=== PATIENT | male | born 1965 | race Caucasian/White ===

== ENCOUNTER 2023-02-23 09:01 | Emergency (ER) | payer OTHER ==
[~2023-02-23] VITALS: Ht 182.9 cm; Wt 104.3 kg
[2023-02-23 09:34] VITALS: BP 141/89; TEMP 98.2
[2023-02-23] MEDS ORDERED: LIDOCAINE 1% INJ 50 ML MDV IJ ONE ×2 (10:30→10:38)
[2023-02-23] MEDS ORDERED: TYL2T PO (11:37)
[2023-02-23 11:40] VITALS: O2SAT 98
== END 2023-02-23 12:06 | disposition home or self-care (01) ==
LOC: ER 09:01
DX: S61.411A Laceration without foreign body of right hand, initial encounter (principal); W20.8XXA Other cause of strike by thrown, projected or falling object, initial encounter; Y93.89 Activity, other specified; Y92.89 Other specified places as the place of occurrence of the external cause; Y99.8 Other external cause status
CPT/HCPCS: 12002; 99282; A6403; J3490